=== PATIENT | male | born 1945 | race Caucasian/White ===

== ENCOUNTER 2021-02-17 08:48 | Inpatient (IN) | payer MEDICARE, OTHER ==
[~2021-02-17] VITALS: Ht 170.2 cm; Wt 83.4 kg
[2021-02-17 09:30] LABS: Basophils # (auto) 0 10 ^3/uL (0-0.2); Basophils % (auto) 0.2 % (0.0-2.0); Eosinophils # (auto) 0 10 ^3/uL (0-0.8); Hematocrit 47.1 % (41.0-53.0); Lymphocytes # (auto) 0.6 10 ^3/uL (0.4-5.4); Lymphocytes % (auto) 5.9 % (10.0-50.0); Mean Corpuscular Hemoglobin 31.2 pg (28.0-32.0); Mean Corpuscular Volume 91.7 fL (80.0-100.0); Monocytes # (auto) 0.5 10 ^3/uL (0-1.3); Monocytes % (auto) 4.9 % (0.0-12.0); Neutrophils # (auto) 9.3 10 ^3/uL (1.6-8.6); Nucleated Red Blood Cells % 0.1 %; Red Blood Cells 5.14 10^6/uL (4.5-5.90); Red Cell Distribution Width 13.1 % (11.8-14.3); White Blood Cell 10.5 10^3/uL (4.4-10.8)
[2021-02-17 09:40] LABS: Albumin 2.2 g/dL (3.4-5.0); Calcium 7.8 mg/dL (8.5-10.1); Potassium 4.1 mmol/L (3.5-5.1)
[2021-02-17 09:43] LABS: Lactic Acid w/Reflex 2.3 mmol/L (0.4-2.0)
[2021-02-17 09:44] LABS: BUN/Creatinine Ratio 22.5; Total Protein 7.6 g/dL (6.4-8.2)
[2021-02-17] MEDS ORDERED: AZITHROMYCIN 250 MG TAB PO ONE (11:15)
[2021-02-17] MEDS ORDERED: cefTRIAXone 1GM/50ML D5W 50 ML IV ONE (11:15)
[2021-02-17] MEDS ORDERED: ACETAMINOPHEN 500 MG TAB PO PRN (12:00)
[2021-02-17] MEDS ORDERED: MORPHINE SULFATE INJECTION 2 MG/ML SYRG IV PRN (12:00)
[2021-02-17] MEDS ORDERED: REMDESIVIR PER PHARMACY 0 ML IV SCH (12:00)
[2021-02-17] MEDS ORDERED: DexAMETHasone SOD PHOS 10MG/1ML VIAL INJ IV ONE (12:00)
[2021-02-17] MEDS ORDERED: NITROGLYCERIN 0.4 MG SL TAB SL PRN (12:00)
[2021-02-17 14:12] VITALS: BP 170/139
[2021-02-17] MEDS: SODIUM CHLOR 0.9% PF (SALINE LOCK) 10ML VIAL/SYR IV SCH (14:13)
[2021-02-17] MEDS ORDERED: FUROSEMIDE 40 MG/4 ML VIAL IV ONE (15:30)
[2021-02-17 18:07] VITALS: BP 126/75
[2021-02-17] MEDS ORDERED: REMDESIVIR 200 MG in NS 210ml LOADING DOSE ADULT IV ONE (20:00)
[2021-02-17 22:00] VITALS: BP 115/64
[2021-02-17] MEDS ORDERED: TOCILIZUMAB 400 MG in SODIUM CHL 0.9% 80 ML IV SCH (22:00)
[2021-02-17] MEDS: BUDESONIDE (INHALATION) 180 MCG IH IN SCH (22:00)
[2021-02-17] MEDS: ALBUTEROL SULF HFA 90MCG INH 200DOSE IN PRN (23:20)
[2021-02-18] MEDS: SODIUM CHLOR 0.9% PF (SALINE LOCK) 10ML VIAL/SYR IV SCH ×4 (00:51→20:48)
[2021-02-18] MEDS: ENOXAPARIN SOD 40 MG/0.4 ML SYRINGE SC SCH ×3 (00:55→20:49)
[2021-02-18] MEDS: DOXYCYCLINE 100MG/250ML 250 ML IV SCH ×3 (00:55→20:48)
[2021-02-18 05:00] VITALS: BP 141/82
[2021-02-18 07:35] LABS: Basophils # (auto) 0 10 ^3/uL (0-0.2); Basophils % (auto) 0.2 % (0.0-2.0); Eosinophils # (auto) 0 10 ^3/uL (0-0.8); Hemoglobin 15.6 g/dL (13.5-17.5); Lymphocytes # (auto) 0.6 10 ^3/uL (0.4-5.4); Lymphocytes % (auto) 5.7 % (10.0-50.0); Mean Corpuscular Hemoglobin 32.4 pg (28.0-32.0); Mean Corpuscular Hgb Conc. 35.3 g/dL (32.0-36.0); Mean Corpuscular Volume 91.6 fL (80.0-100.0); Monocytes # (auto) 0.6 10 ^3/uL (0-1.3); Monocytes % (auto) 6.2 % (0.0-12.0); Neutrophils # (auto) 8.7 10 ^3/uL (1.6-8.6); Neutrophils % (auto) 87.9 % (37.0-80.0); Nucleated Red Blood Cells % 0.1 %; Red Blood Cells 4.81 10^6/uL (4.5-5.90); White Blood Cell 9.9 10^3/uL (4.4-10.8)
[2021-02-18 07:46] LABS: Albumin 2.2 g/dL (3.4-5.0); Calcium 7.6 mg/dL (8.5-10.1); Potassium 3.8 mmol/L (3.5-5.1)
[2021-02-18 07:49] LABS: BUN/Creatinine Ratio 38.7; Bilirubin, Total 0.7 mg/dL (0.2-1.0); Total Protein 6.5 g/dL (6.4-8.2)
[2021-02-18] MEDS: ALBUTEROL SULF HFA 90MCG INH 200DOSE IN PRN (08:01)
[2021-02-18] MEDS: BUDESONIDE (INHALATION) 180 MCG IH IN SCH ×2 (08:01→21:20)
[2021-02-18 09:00] VITALS: BP 134/83
[2021-02-18] MEDS: ASCORBIC ACID 1,000 MG TAB PO SCH (09:18)
[2021-02-18] MEDS: CHOLECALCIFEROL (VITD3) 2,000 UNIT CAP/TAB PO SCH (09:18)
[2021-02-18] MEDS: DexAMETHasone SOD PHOS 10MG/1ML VIAL INJ IV SCH (09:18)
[2021-02-18] MEDS: FUROSEMIDE 40 MG/4 ML VIAL IV SCH (09:18)
[2021-02-18] MEDS: ZINC SULFATE 220mg CAP or TAB PO SCH (09:19)
[2021-02-18 13:00] VITALS: BP 121/79
[2021-02-18] MEDS: REMDESIVIR 100mg 100 MG in SODIUM CHL 0.9% 230 ML IV SCH (15:40)
[2021-02-18 20:32] LABS: Urine Bacteria FEW /hpf (None Seen); Urine Blood Negative /uL (Negative); Urine Hyaline Cast FEW /lpf (0 - 2); Urine Mucus FEW (None Seen); Urine WBC 3 /hpf (0 - 3)
[2021-02-18 21:17] VITALS: BP 136/86
[2021-02-19] MEDS: ALBUTEROL SULF HFA 90MCG INH 200DOSE IN PRN ×2 (01:30→09:45)
[2021-02-19 05:00] VITALS: BP 134/72
[2021-02-19] MEDS: SODIUM CHLOR 0.9% PF (SALINE LOCK) 10ML VIAL/SYR IV SCH ×3 (05:11→20:56)
[2021-02-19 09:00] VITALS: BP 136/66
[2021-02-19] MEDS: BUDESONIDE (INHALATION) 180 MCG IH IN SCH ×2 (09:45→23:23)
[2021-02-19] MEDS: DexAMETHasone SOD PHOS 10MG/1ML VIAL INJ IV SCH (10:16)
[2021-02-19] MEDS: FUROSEMIDE 40 MG/4 ML VIAL IV SCH (10:16)
[2021-02-19] MEDS: ZINC SULFATE 220mg CAP or TAB PO SCH (10:17)
[2021-02-19] MEDS: DOXYCYCLINE 100MG/250ML 250 ML IV SCH ×2 (10:17→20:56)
[2021-02-19] MEDS: POTASSIUM CHL 10 Meq TABLET PO SCH (10:17)
[2021-02-19] MEDS: ASCORBIC ACID 1,000 MG TAB PO SCH (10:24)
[2021-02-19] MEDS: CHOLECALCIFEROL (VITD3) 2,000 UNIT CAP/TAB PO SCH (10:24)
[2021-02-19] MEDS: ENOXAPARIN SOD 40 MG/0.4 ML SYRINGE SC SCH ×2 (10:25→20:56)
[2021-02-19 13:21] VITALS: BP 132/69
[2021-02-19] MEDS: REMDESIVIR 100mg 100 MG in SODIUM CHL 0.9% 230 ML IV SCH (15:22)
[2021-02-19 17:00] VITALS: BP 136/74
[2021-02-19] MEDS ORDERED: Ensure HIGH Protein Chocolate 8oz Bottle PO SCH (18:00)
[2021-02-19] MEDS: Glucerna Carbsteady SHAKE Vanilla 8oz PO SCH (18:07)
[2021-02-19] MEDS ORDERED: LORazepam 0.5 MG TAB PO ONE (22:00)
[2021-02-19 22:24] VITALS: BP 130/71
[2021-02-20] VITALS (8 sets, daily range): BP systolic 123–148; BP diastolic 53–86
[2021-02-20] MEDS: ALBUTEROL SULF HFA 90MCG INH 200DOSE IN PRN ×2 (00:18→06:00)
[2021-02-20] MEDS: SODIUM CHLOR 0.9% PF (SALINE LOCK) 10ML VIAL/SYR IV SCH ×3 (05:13→21:15)
[2021-02-20] MEDS: BUDESONIDE (INHALATION) 180 MCG IH IN SCH ×2 (06:00→22:20)
[2021-02-20 08:07] LABS: Basophils # (auto) 0 10 ^3/uL (0-0.2); Calcium 7.3 mg/dL (8.5-10.1); Eosinophils # (auto) 0 10 ^3/uL (0-0.8); Eosinophils % (auto) 0.1 % (0.0-7.0); Hemoglobin 15.1 g/dL (13.5-17.5); Lymphocytes # (auto) 0.4 10 ^3/uL (0.4-5.4); Lymphocytes % (auto) 4.2 % (10.0-50.0); Mean Corpuscular Hemoglobin 31.8 pg (28.0-32.0); Mean Corpuscular Hgb Conc. 34.3 g/dL (32.0-36.0); Mean Corpuscular Volume 92.8 fL (80.0-100.0); Monocytes # (auto) 0.2 10 ^3/uL (0-1.3); Monocytes % (auto) 2.3 % (0.0-12.0); Neutrophils % (auto) 93.4 % (37.0-80.0); Red Blood Cells 4.74 10^6/uL (4.5-5.90); Red Cell Distribution Width 13.3 % (11.8-14.3); White Blood Cell 9.7 10^3/uL (4.4-10.8)
[2021-02-20 08:12] LABS: BUN/Creatinine Ratio 38.5
[2021-02-20] MEDS: Glucerna Carbsteady SHAKE Vanilla 8oz PO SCH ×2 (08:24→18:05)
[2021-02-20] MEDS: FUROSEMIDE 40 MG/4 ML VIAL IV SCH (10:00)
[2021-02-20] MEDS: POTASSIUM CHL 10 Meq TABLET PO SCH (10:00)
[2021-02-20] MEDS: ENOXAPARIN SOD 40 MG/0.4 ML SYRINGE SC SCH ×2 (10:00→21:15)
[2021-02-20] MEDS: DexAMETHasone SOD PHOS 10MG/1ML VIAL INJ IV SCH (10:00)
[2021-02-20] MEDS: DOXYCYCLINE 100MG/250ML 250 ML IV SCH ×2 (10:00→21:15)
[2021-02-20] MEDS: ASCORBIC ACID 1,000 MG TAB PO SCH (10:00)
[2021-02-20] MEDS: ZINC SULFATE 220mg CAP or TAB PO SCH (10:00)
[2021-02-20] MEDS: CHOLECALCIFEROL (VITD3) 2,000 UNIT CAP/TAB PO SCH (10:00)
[2021-02-20] MEDS: REMDESIVIR 100mg 100 MG in SODIUM CHL 0.9% 230 ML IV SCH (15:37)
[2021-02-21] VITALS (11 sets, daily range): BP systolic 126–159; BP diastolic 74–87
[2021-02-21] MEDS: SODIUM CHLOR 0.9% PF (SALINE LOCK) 10ML VIAL/SYR IV SCH ×3 (06:12→21:27)
[2021-02-21] MEDS: BUDESONIDE (INHALATION) 180 MCG IH IN SCH ×2 (06:16→19:20)
[2021-02-21] MEDS: ALBUTEROL SULF HFA 90MCG INH 200DOSE IN PRN ×2 (06:16→20:13)
[2021-02-21 06:23] LABS: Potassium 3.9 mmol/L (3.5-5.1)
[2021-02-21] MEDS: guaiFENesin-DM 100/10mg/5ml SYR PO PRN (06:27)
[2021-02-21 06:31] LABS: Albumin 2.2 g/dL (3.4-5.0); BUN/Creatinine Ratio 37.5; Calcium 7.5 mg/dL (8.5-10.1); Total Protein 6.3 g/dL (6.4-8.2)
[2021-02-21] MEDS: Glucerna Carbsteady SHAKE Vanilla 8oz PO SCH ×2 (08:00→18:00)
[2021-02-21] MEDS: DexAMETHasone SOD PHOS 10MG/1ML VIAL INJ IV SCH (10:00)
[2021-02-21] MEDS: FUROSEMIDE 40 MG/4 ML VIAL IV SCH (10:00)
[2021-02-21] MEDS: DOXYCYCLINE 100MG/250ML 250 ML IV SCH ×2 (10:00→21:27)
[2021-02-21] MEDS ORDERED: HALOPERIDOL LACTATE 5 MG/ML INJ VIAL IM ONE (15:30)
[2021-02-21] MEDS: ASCORBIC ACID 1,000 MG TAB PO SCH (15:34)
[2021-02-21] MEDS: POTASSIUM CHL 10 Meq TABLET PO SCH (15:34)
[2021-02-21] MEDS: ZINC SULFATE 220mg CAP or TAB PO SCH (15:34)
[2021-02-21] MEDS: ENOXAPARIN SOD 40 MG/0.4 ML SYRINGE SC SCH ×2 (15:35→21:28)
[2021-02-21] MEDS: CHOLECALCIFEROL (VITD3) 2,000 UNIT CAP/TAB PO SCH (15:35)
[2021-02-21] MEDS: REMDESIVIR 100mg 100 MG in SODIUM CHL 0.9% 230 ML IV SCH (15:50)
[2021-02-22] VITALS (14 sets, daily range): BP systolic 136–150; BP diastolic 70–89
[2021-02-22] MEDS: TEMAZEPAM 15 MG CAP PO PRN ×2 (00:33→23:28)
[2021-02-22] MEDS: ALBUTEROL SULF HFA 90MCG INH 200DOSE IN PRN ×2 (06:03→18:22)
[2021-02-22] MEDS: BUDESONIDE (INHALATION) 180 MCG IH IN SCH ×2 (06:03→18:22)
[2021-02-22] MEDS: SODIUM CHLOR 0.9% PF (SALINE LOCK) 10ML VIAL/SYR IV SCH ×3 (06:07→22:26)
[2021-02-22] MEDS: Glucerna Carbsteady SHAKE Vanilla 8oz PO SCH ×2 (09:22→17:41)
[2021-02-22] MEDS: DexAMETHasone SOD PHOS 10MG/1ML VIAL INJ IV SCH (09:56)
[2021-02-22] MEDS: POTASSIUM CHL 10 Meq TABLET PO SCH (09:57)
[2021-02-22] MEDS: DOXYCYCLINE 100MG/250ML 250 ML IV SCH (09:57)
[2021-02-22] MEDS: ZINC SULFATE 220mg CAP or TAB PO SCH (09:57)
[2021-02-22] MEDS: FUROSEMIDE 40 MG/4 ML VIAL IV SCH (09:57)
[2021-02-22] MEDS: CHOLECALCIFEROL (VITD3) 2,000 UNIT CAP/TAB PO SCH (09:58)
[2021-02-22] MEDS: ASCORBIC ACID 1,000 MG TAB PO SCH (09:58)
[2021-02-22] MEDS: ENOXAPARIN SOD 40 MG/0.4 ML SYRINGE SC SCH ×2 (09:58→22:26)
[2021-02-22] MEDS ORDERED: HALOPERIDOL LACTATE 5 MG/ML INJ VIAL IM PRN (13:00)
[2021-02-23] VITALS (13 sets, daily range): BP systolic 130–159; BP diastolic 79–95
[2021-02-23] MEDS: ALBUTEROL SULF HFA 90MCG INH 200DOSE IN PRN ×2 (05:48→23:29)
[2021-02-23] MEDS: BUDESONIDE (INHALATION) 180 MCG IH IN SCH ×2 (05:48→22:00)
[2021-02-23] MEDS: SODIUM CHLOR 0.9% PF (SALINE LOCK) 10ML VIAL/SYR IV SCH ×3 (06:08→21:41)
[2021-02-23] MEDS: Glucerna Carbsteady SHAKE Vanilla 8oz PO SCH ×2 (08:00→19:30)
[2021-02-23 09:24] LABS: Calcium 7.9 mg/dL (8.5-10.1); Potassium 4.3 mmol/L (3.5-5.1)
[2021-02-23 09:33] LABS: BUN/Creatinine Ratio 48.6; Bilirubin, Total 0.8 mg/dL (0.2-1.0); CRP High Sensitivity 11.7 mg/dL (< 0.3); Total Protein 6.9 g/dL (6.4-8.2)
[2021-02-23] MEDS: POTASSIUM CHL 10 Meq TABLET PO SCH ×2 (10:00→12:07)
[2021-02-23] MEDS: guaiFENesin-DM 100/10mg/5ml SYR PO PRN (10:44)
[2021-02-23] MEDS: DexAMETHasone SOD PHOS 10MG/1ML VIAL INJ IV SCH (10:45)
[2021-02-23] MEDS: ASCORBIC ACID 1,000 MG TAB PO SCH (10:46)
[2021-02-23] MEDS: CHOLECALCIFEROL (VITD3) 2,000 UNIT CAP/TAB PO SCH (10:48)
[2021-02-23] MEDS: ENOXAPARIN SOD 40 MG/0.4 ML SYRINGE SC SCH ×2 (10:49→21:41)
[2021-02-23] MEDS: FUROSEMIDE 40 MG/4 ML VIAL IV SCH (10:51)
[2021-02-23] MEDS: ZINC SULFATE 220mg CAP or TAB PO SCH (11:03)
[2021-02-23] MEDS: TEMAZEPAM 15 MG CAP PO PRN (21:41)
[2021-02-24] VITALS (11 sets, daily range): BP systolic 119–160; BP diastolic 71–97
[2021-02-24] MEDS: SODIUM CHLOR 0.9% PF (SALINE LOCK) 10ML VIAL/SYR IV SCH ×3 (06:10→21:43)
[2021-02-24] MEDS: guaiFENesin-DM 100/10mg/5ml SYR PO PRN ×2 (06:11→23:34)
[2021-02-24 06:45] LABS: Basophils # (auto) 0 10 ^3/uL (0-0.2); Basophils % (auto) 0.1 % (0.0-2.0); Eosinophils # (auto) 0 10 ^3/uL (0-0.8); Hematocrit 45.7 % (41.0-53.0); Hemoglobin 15.6 g/dL (13.5-17.5); Lymphocytes # (auto) 0.5 10 ^3/uL (0.4-5.4); Mean Corpuscular Hemoglobin 31.8 pg (28.0-32.0); Mean Corpuscular Hgb Conc. 34.1 g/dL (32.0-36.0); Mean Corpuscular Volume 93.3 fL (80.0-100.0); Monocytes # (auto) 0.4 10 ^3/uL (0-1.3); Monocytes % (auto) 2.8 % (0.0-12.0); Neutrophils # (auto) 12.5 10 ^3/uL (1.6-8.6); Neutrophils % (auto) 93.1 % (37.0-80.0); Red Cell Distribution Width 13.3 % (11.8-14.3); White Blood Cell 13.4 10^3/uL (4.4-10.8)
[2021-02-24 07:52] LABS: Potassium 5.1 mmol/L (3.5-5.1)
[2021-02-24 08:14] LABS: BUN/Creatinine Ratio 58.1; CRP High Sensitivity 10.2 mg/dL (< 0.3); Calcium 8.2 mg/dL (8.5-10.1)
[2021-02-24] MEDS: BUDESONIDE (INHALATION) 180 MCG IH IN SCH ×2 (08:43→19:15)
[2021-02-24] MEDS: ALBUTEROL SULF HFA 90MCG INH 200DOSE IN PRN ×2 (08:43→19:14)
[2021-02-24] MEDS: Glucerna Carbsteady SHAKE Vanilla 8oz PO SCH ×2 (09:23→18:40)
[2021-02-24] MEDS ORDERED: hydrALAZINE HCL 20 MG/ML VL IV PRN (09:30)
[2021-02-24] MEDS: ZINC SULFATE 220mg CAP or TAB PO SCH (10:01)
[2021-02-24] MEDS: POTASSIUM CHL 10 Meq TABLET PO SCH (10:01)
[2021-02-24] MEDS: DexAMETHasone SOD PHOS 10MG/1ML VIAL INJ IV SCH (10:01)
[2021-02-24] MEDS: ENOXAPARIN SOD 100 MG/1 ML SYRINGE SC SCH ×2 (10:02→21:42)
[2021-02-24] MEDS: CHOLECALCIFEROL (VITD3) 2,000 UNIT CAP/TAB PO SCH (10:02)
[2021-02-24] MEDS: ASCORBIC ACID 1,000 MG TAB PO SCH (10:02)
[2021-02-24] MEDS: FUROSEMIDE 20 MG TAB PO SCH (10:02)
[2021-02-24] MEDS: TEMAZEPAM 15 MG CAP PO PRN (23:34)
[2021-02-25] VITALS (10 sets, daily range): BP systolic 119–152; BP diastolic 75–91
[2021-02-25] MEDS: SODIUM CHLOR 0.9% PF (SALINE LOCK) 10ML VIAL/SYR IV SCH ×3 (06:00→20:53)
[2021-02-25] MEDS: Glucerna Carbsteady SHAKE Vanilla 8oz PO SCH ×2 (08:00→18:00)
[2021-02-25] MEDS: POTASSIUM CHL 10 Meq TABLET PO SCH (10:45)
[2021-02-25] MEDS: ZINC SULFATE 220mg CAP or TAB PO SCH (10:45)
[2021-02-25] MEDS: DexAMETHasone SOD PHOS 10MG/1ML VIAL INJ IV SCH (10:45)
[2021-02-25] MEDS: FUROSEMIDE 20 MG TAB PO SCH (10:46)
[2021-02-25] MEDS: ASCORBIC ACID 1,000 MG TAB PO SCH (10:46)
[2021-02-25] MEDS: CHOLECALCIFEROL (VITD3) 2,000 UNIT CAP/TAB PO SCH (10:47)
[2021-02-25] MEDS: ENOXAPARIN SOD 100 MG/1 ML SYRINGE SC SCH ×2 (10:47→20:53)
[2021-02-25] MEDS ORDERED: ACETAMINOPHEN 325 MG TAB PO PRN (12:15)
[2021-02-25] MEDS: ALBUTEROL SULF HFA 90MCG INH 200DOSE IN PRN ×2 (15:27→21:06)
[2021-02-25] MEDS: BUDESONIDE (INHALATION) 180 MCG IH IN SCH ×2 (15:27→19:40)
[2021-02-25] MEDS: guaiFENesin-DM 100/10mg/5ml SYR PO PRN (20:53)
[2021-02-25] MEDS: TEMAZEPAM 15 MG CAP PO PRN (20:53)
[2021-02-26] VITALS (8 sets, daily range): BP systolic 120–154; BP diastolic 80–95
[2021-02-26] MEDS: SODIUM CHLOR 0.9% PF (SALINE LOCK) 10ML VIAL/SYR IV SCH ×3 (06:40→21:30)
[2021-02-26] MEDS: BUDESONIDE (INHALATION) 180 MCG IH IN SCH ×2 (07:39→18:40)
[2021-02-26] MEDS: ALBUTEROL SULF HFA 90MCG INH 200DOSE IN PRN ×2 (07:39→19:12)
[2021-02-26] MEDS: Glucerna Carbsteady SHAKE Vanilla 8oz PO SCH ×2 (08:07→18:00)
[2021-02-26] MEDS: POTASSIUM CHL 10 Meq TABLET PO SCH (10:12)
[2021-02-26] MEDS: DexAMETHasone SOD PHOS 10MG/1ML VIAL INJ IV SCH (10:12)
[2021-02-26] MEDS: ZINC SULFATE 220mg CAP or TAB PO SCH (10:12)
[2021-02-26] MEDS: CHOLECALCIFEROL (VITD3) 2,000 UNIT CAP/TAB PO SCH (10:14)
[2021-02-26] MEDS: ENOXAPARIN SOD 100 MG/1 ML SYRINGE SC SCH (10:14)
[2021-02-26] MEDS: ASCORBIC ACID 1,000 MG TAB PO SCH (10:14)
[2021-02-26] MEDS: FUROSEMIDE 20 MG TAB PO SCH ×2 (10:22→10:25)
[2021-02-26] MEDS ORDERED: FUROSEMIDE 40 MG/4 ML VIAL IV ONE (16:30)
[2021-02-26] MEDS: APIXABAN 5 MG TAB PO SCH (21:30)
[2021-02-26] MEDS: TEMAZEPAM 15 MG CAP PO PRN (21:31)
[2021-02-26] MEDS: guaiFENesin-DM 100/10mg/5ml SYR PO PRN (21:31)
[2021-02-27 05:00] VITALS: BP 149/97
[2021-02-27 06:27] VITALS: BP 149/97
[2021-02-27] MEDS: SODIUM CHLOR 0.9% PF (SALINE LOCK) 10ML VIAL/SYR IV SCH ×3 (06:30→21:32)
[2021-02-27 09:13] VITALS: BP 135/91
[2021-02-27] MEDS: Glucerna Carbsteady SHAKE Vanilla 8oz PO SCH ×2 (10:08→17:50)
[2021-02-27] MEDS: DexAMETHasone SOD PHOS 10MG/1ML VIAL INJ IV SCH (10:08)
[2021-02-27] MEDS: ASCORBIC ACID 1,000 MG TAB PO SCH (10:09)
[2021-02-27] MEDS: ZINC SULFATE 220mg CAP or TAB PO SCH (10:09)
[2021-02-27] MEDS: APIXABAN 5 MG TAB PO SCH ×2 (10:09→21:33)
[2021-02-27] MEDS: CHOLECALCIFEROL (VITD3) 2,000 UNIT CAP/TAB PO SCH (10:09)
[2021-02-27] MEDS: POTASSIUM CHL 10 Meq TABLET PO SCH (10:10)
[2021-02-27 10:39] LABS: Hematocrit 47.2 % (41.0-53.0); Hemoglobin 15.6 g/dL (13.5-17.5); Mean Corpuscular Hemoglobin 30.8 pg (28.0-32.0); Mean Corpuscular Hgb Conc. 32.9 g/dL (32.0-36.0); Mean Corpuscular Volume 93.5 fL (80.0-100.0); Red Blood Cells 5.05 10^6/uL (4.5-5.90); Red Cell Distribution Width 13.3 % (11.8-14.3); White Blood Cell 19.6 10^3/uL (4.4-10.8)
[2021-02-27 10:47] LABS: Basophils % (manual) 0 (0.0-2.0); Blast Cells 0; Metamyelocytes % 0; Myelocytes % 0; Promyelocytes % 0; Reactive Lymphocytes 0
[2021-02-27 11:03] LABS: Band Neutrophils % (manual) 8; Eosinophils % (manual) 3 (0-7); Lymphocytes % (manual) 3 (10.0-50.0); Monocytes % (manual) 1 (0-12)
[2021-02-27] MEDS: BUDESONIDE (INHALATION) 180 MCG IH IN SCH ×2 (11:04→19:00)
[2021-02-27] MEDS: ALBUTEROL SULF HFA 90MCG INH 200DOSE IN PRN ×2 (11:04→20:22)
[2021-02-27 11:16] LABS: Potassium 4.7 mmol/L (3.5-5.1)
[2021-02-27 11:30] LABS: Albumin 1.9 g/dL (3.4-5.0); BUN/Creatinine Ratio 59.1; Bilirubin, Total 0.7 mg/dL (0.2-1.0); Calcium 8.3 mg/dL (8.5-10.1); Total Protein 6.9 g/dL (6.4-8.2)
[2021-02-27] MEDS ORDERED: FUROSEMIDE 40 MG/4 ML VIAL IV ONE (13:00)
[2021-02-27 14:16] VITALS: BP 137/83
[2021-02-27 17:36] VITALS: BP 140/79
[2021-02-27] MEDS: guaiFENesin-DM 100/10mg/5ml SYR PO PRN (21:34)
[2021-02-27] MEDS: TEMAZEPAM 15 MG CAP PO PRN (21:34)
[2021-02-27 22:00] VITALS: BP 119/81
[2021-02-28 05:00] VITALS: BP 155/85
[2021-02-28] MEDS: SODIUM CHLOR 0.9% PF (SALINE LOCK) 10ML VIAL/SYR IV SCH ×3 (06:32→22:21)
[2021-02-28 06:35] VITALS: BP 149/97
[2021-02-28 08:00] VITALS: BP 128/80
[2021-02-28] MEDS: Glucerna Carbsteady SHAKE Vanilla 8oz PO SCH ×2 (08:00→18:19)
[2021-02-28] MEDS: ZINC SULFATE 220mg CAP or TAB PO SCH (09:45)
[2021-02-28] MEDS: FUROSEMIDE 40 MG/4 ML VIAL IV SCH (09:45)
[2021-02-28] MEDS: POTASSIUM CHL 10 Meq TABLET PO SCH (09:46)
[2021-02-28] MEDS: CHOLECALCIFEROL (VITD3) 2,000 UNIT CAP/TAB PO SCH (09:46)
[2021-02-28] MEDS: ASCORBIC ACID 1,000 MG TAB PO SCH (09:46)
[2021-02-28] MEDS: APIXABAN 5 MG TAB PO SCH ×2 (09:46→22:20)
[2021-02-28] MEDS: BUDESONIDE (INHALATION) 180 MCG IH IN SCH (10:00)
[2021-02-28] MEDS: ALBUTEROL SULF HFA 90MCG INH 200DOSE IN PRN (11:57)
[2021-02-28 12:26] LABS: Basophils # (auto) 0 10 ^3/uL (0-0.2); Eosinophils # (auto) 0.1 10 ^3/uL (0-0.8); Eosinophils % (auto) 0.6 % (0.0-7.0); Hematocrit 51.2 % (41.0-53.0); Hemoglobin 16.8 g/dL (13.5-17.5); Lymphocytes # (auto) 0.8 10 ^3/uL (0.4-5.4); Lymphocytes % (auto) 3.9 % (10.0-50.0); Mean Corpuscular Hemoglobin 30.6 pg (28.0-32.0); Mean Corpuscular Hgb Conc. 32.7 g/dL (32.0-36.0); Mean Corpuscular Volume 93.6 fL (80.0-100.0); Monocytes # (auto) 0.6 10 ^3/uL (0-1.3); Monocytes % (auto) 2.7 % (0.0-12.0); Neutrophils # (auto) 19.3 10 ^3/uL (1.6-8.6); Neutrophils % (auto) 92.8 % (37.0-80.0); Nucleated Red Blood Cells % 0.1 %; Red Blood Cells 5.47 10^6/uL (4.5-5.90); Red Cell Distribution Width 13.1 % (11.8-14.3); White Blood Cell 20.8 10^3/uL (4.4-10.8)
[2021-02-28 12:42] LABS: Albumin 2.1 g/dL (3.4-5.0); Calcium 8.5 mg/dL (8.5-10.1); Potassium 4.7 mmol/L (3.5-5.1)
[2021-02-28 12:45] LABS: BUN/Creatinine Ratio 49.4; Total Protein 7.6 g/dL (6.4-8.2)
[2021-02-28 13:37] VITALS: BP 130/83
[2021-02-28] MEDS ORDERED: cefTRIAXone 1GM/50ML D5W 50 ML IV ONE (15:45)
[2021-02-28 17:03] VITALS: BP 104/66
[2021-02-28 22:00] VITALS: BP 124/69
[2021-03-01 05:00] VITALS: BP 130/84
[2021-03-01] MEDS: SODIUM CHLOR 0.9% PF (SALINE LOCK) 10ML VIAL/SYR IV SCH ×3 (06:22→23:04)
[2021-03-01] MEDS: BUDESONIDE (INHALATION) 180 MCG IH IN SCH ×2 (06:27→22:00)
[2021-03-01] MEDS: ALBUTEROL SULF HFA 90MCG INH 200DOSE IN PRN (06:27)
[2021-03-01] MEDS: Glucerna Carbsteady SHAKE Vanilla 8oz PO SCH ×2 (08:00→18:14)
[2021-03-01 09:44] VITALS: BP 151/85
[2021-03-01] MEDS: APIXABAN 5 MG TAB PO SCH ×2 (11:42→23:04)
[2021-03-01] MEDS: cefTRIAXone 1GM/50ML D5W 50 ML IV SCH (11:42)
[2021-03-01] MEDS: POTASSIUM CHL 10 Meq TABLET PO SCH (11:43)
[2021-03-01] MEDS: CHOLECALCIFEROL (VITD3) 2,000 UNIT CAP/TAB PO SCH (11:43)
[2021-03-01] MEDS: FUROSEMIDE 40 MG/4 ML VIAL IV SCH (11:44)
[2021-03-01 12:49] VITALS: BP 117/82
[2021-03-01 16:54] VITALS: BP 121/87
[2021-03-01 22:00] VITALS: BP 127/72
[2021-03-01] MEDS: TEMAZEPAM 15 MG CAP PO PRN (23:05)
[2021-03-01] MEDS: guaiFENesin-DM 100/10mg/5ml SYR PO PRN (23:05)
[2021-03-02] VITALS (8 sets, daily range): BP systolic 112–129; BP diastolic 71–87
[2021-03-02] MEDS: SODIUM CHLOR 0.9% PF (SALINE LOCK) 10ML VIAL/SYR IV SCH ×3 (05:28→21:48)
[2021-03-02] MEDS: ALBUTEROL SULF HFA 90MCG INH 200DOSE IN PRN ×2 (06:26→18:50)
[2021-03-02] MEDS: BUDESONIDE (INHALATION) 180 MCG IH IN SCH ×2 (06:28→18:50)
[2021-03-02] MEDS: Glucerna Carbsteady SHAKE Vanilla 8oz PO SCH ×2 (08:00→18:00)
[2021-03-02 10:22] LABS: Basophils # (auto) 0 10 ^3/uL (0-0.2); Basophils % (auto) 0.1 % (0.0-2.0); Eosinophils # (auto) 0.1 10 ^3/uL (0-0.8); Eosinophils % (auto) 0.8 % (0.0-7.0); Hematocrit 45.4 % (41.0-53.0); Hemoglobin 14.9 g/dL (13.5-17.5); Lymphocytes % (auto) 5.5 % (10.0-50.0); Mean Corpuscular Hemoglobin 30.9 pg (28.0-32.0); Mean Corpuscular Hgb Conc. 32.9 g/dL (32.0-36.0); Mean Corpuscular Volume 93.8 fL (80.0-100.0); Monocytes % (auto) 5.8 % (0.0-12.0); Neutrophils # (auto) 15.9 10 ^3/uL (1.6-8.6); Neutrophils % (auto) 87.8 % (37.0-80.0); Nucleated Red Blood Cells % 0.1 %; Red Blood Cells 4.84 10^6/uL (4.5-5.90); Red Cell Distribution Width 13.5 % (11.8-14.3); White Blood Cell 18.1 10^3/uL (4.4-10.8)
[2021-03-02] MEDS: cefTRIAXone 1GM/50ML D5W 50 ML IV SCH (10:25)
[2021-03-02] MEDS: FUROSEMIDE 40 MG/4 ML VIAL IV SCH (10:26)
[2021-03-02] MEDS: APIXABAN 5 MG TAB PO SCH ×2 (10:26→21:48)
[2021-03-02] MEDS: POTASSIUM CHL 10 Meq TABLET PO SCH (10:27)
[2021-03-02] MEDS: CHOLECALCIFEROL (VITD3) 2,000 UNIT CAP/TAB PO SCH (10:27)
[2021-03-02] MEDS: TEMAZEPAM 15 MG CAP PO PRN (21:49)
[2021-03-02] MEDS: guaiFENesin-DM 100/10mg/5ml SYR PO PRN (21:49)
[2021-03-03 00:10] VITALS: BP 125/80
[2021-03-03 05:00] VITALS: BP 123/77
[2021-03-03] MEDS: BUDESONIDE (INHALATION) 180 MCG IH IN SCH ×2 (05:31→18:10)
[2021-03-03] MEDS: ALBUTEROL SULF HFA 90MCG INH 200DOSE IN PRN ×2 (05:31→19:05)
[2021-03-03] MEDS: SODIUM CHLOR 0.9% PF (SALINE LOCK) 10ML VIAL/SYR IV SCH ×3 (05:36→22:28)
[2021-03-03] MEDS: Glucerna Carbsteady SHAKE Vanilla 8oz PO SCH ×2 (08:00→18:00)
[2021-03-03 08:18] LABS: Basophils # (auto) 0 10 ^3/uL (0-0.2); Basophils % (auto) 0.1 % (0.0-2.0); Eosinophils # (auto) 0.3 10 ^3/uL (0-0.8); Eosinophils % (auto) 1.9 % (0.0-7.0); Hematocrit 45.8 % (41.0-53.0); Hemoglobin 15.1 g/dL (13.5-17.5); Lymphocytes # (auto) 1.1 10 ^3/uL (0.4-5.4); Lymphocytes % (auto) 6.3 % (10.0-50.0); Mean Corpuscular Hemoglobin 31.4 pg (28.0-32.0); Monocytes # (auto) 0.8 10 ^3/uL (0-1.3); Neutrophils # (auto) 14.8 10 ^3/uL (1.6-8.6); Neutrophils % (auto) 86.7 % (37.0-80.0); Red Blood Cells 4.82 10^6/uL (4.5-5.90); Red Cell Distribution Width 13.2 % (11.8-14.3)
[2021-03-03] MEDS: cefTRIAXone 1GM/50ML D5W 50 ML IV SCH (08:21)
[2021-03-03 08:35] LABS: Potassium 4.9 mmol/L (3.5-5.1)
[2021-03-03 08:44] LABS: BUN/Creatinine Ratio 67.3; Calcium 8.9 mg/dL (8.5-10.1)
[2021-03-03 09:06] VITALS: BP 120/79
[2021-03-03] MEDS: POTASSIUM CHL 10 Meq TABLET PO SCH (10:00)
[2021-03-03] MEDS: CHOLECALCIFEROL (VITD3) 2,000 UNIT CAP/TAB PO SCH (10:00)
[2021-03-03] MEDS: APIXABAN 5 MG TAB PO SCH ×2 (10:00→22:28)
[2021-03-03] MEDS: FUROSEMIDE 40 MG/4 ML VIAL IV SCH (10:00)
[2021-03-03 12:57] VITALS: BP 121/77
[2021-03-03 17:00] VITALS: BP 121/80
[2021-03-03] MEDS: guaiFENesin-DM 100/10mg/5ml SYR PO PRN (21:48)
[2021-03-03] MEDS: TEMAZEPAM 15 MG CAP PO PRN (21:52)
[2021-03-03 22:00] VITALS: BP 125/64
[2021-03-04 05:00] VITALS: BP 123/72
[2021-03-04] MEDS: SODIUM CHLOR 0.9% PF (SALINE LOCK) 10ML VIAL/SYR IV SCH ×3 (05:49→21:59)
[2021-03-04] MEDS: ALBUTEROL SULF HFA 90MCG INH 200DOSE IN PRN ×2 (05:53→19:54)
[2021-03-04] MEDS: BUDESONIDE (INHALATION) 180 MCG IH IN SCH ×2 (05:53→19:54)
[2021-03-04 09:00] VITALS: BP 125/77
[2021-03-04] MEDS: Glucerna Carbsteady SHAKE Vanilla 8oz PO SCH ×2 (09:10→17:53)
[2021-03-04] MEDS: FUROSEMIDE 40 MG/4 ML VIAL IV SCH (09:16)
[2021-03-04] MEDS: cefTRIAXone 1GM/50ML D5W 50 ML IV SCH (09:16)
[2021-03-04] MEDS: POTASSIUM CHL 10 Meq TABLET PO SCH (09:17)
[2021-03-04] MEDS: APIXABAN 5 MG TAB PO SCH ×2 (09:17→21:58)
[2021-03-04] MEDS: CHOLECALCIFEROL (VITD3) 2,000 UNIT CAP/TAB PO SCH (09:17)
[2021-03-04 12:45] VITALS: BP 115/70
[2021-03-04 17:16] VITALS: BP 122/77
[2021-03-04] MEDS: guaiFENesin-DM 100/10mg/5ml SYR PO PRN (21:58)
[2021-03-04] MEDS: TEMAZEPAM 15 MG CAP PO PRN (21:58)
[2021-03-04 22:00] VITALS: BP 135/73
[2021-03-05] MEDS: guaiFENesin-DM 100/10mg/5ml SYR PO PRN ×2 (04:37→22:20)
[2021-03-05 05:00] VITALS: BP 128/84
[2021-03-05] MEDS: SODIUM CHLOR 0.9% PF (SALINE LOCK) 10ML VIAL/SYR IV SCH ×3 (05:58→22:17)
[2021-03-05] MEDS: ALBUTEROL SULF HFA 90MCG INH 200DOSE IN PRN (06:36)
[2021-03-05] MEDS: BUDESONIDE (INHALATION) 180 MCG IH IN SCH ×2 (06:36→22:00)
[2021-03-05] MEDS: Glucerna Carbsteady SHAKE Vanilla 8oz PO SCH ×2 (08:00→16:27)
[2021-03-05] MEDS: APIXABAN 5 MG TAB PO SCH ×2 (08:53→22:18)
[2021-03-05] MEDS: cefTRIAXone 1GM/50ML D5W 50 ML IV SCH (08:53)
[2021-03-05] MEDS: CHOLECALCIFEROL (VITD3) 2,000 UNIT CAP/TAB PO SCH (08:54)
[2021-03-05] MEDS: FUROSEMIDE 40 MG/4 ML VIAL IV SCH (08:54)
[2021-03-05] MEDS: POTASSIUM CHL 10 Meq TABLET PO SCH (08:54)
[2021-03-05 09:00] VITALS: BP 89/61
[2021-03-05 10:53] LABS: Basophils # (auto) 0 10 ^3/uL (0-0.2); Basophils % (auto) 0.2 % (0.0-2.0); Eosinophils # (auto) 0.4 10 ^3/uL (0-0.8); Eosinophils % (auto) 2.2 % (0.0-7.0); Hemoglobin 13.8 g/dL (13.5-17.5); Lymphocytes # (auto) 0.6 10 ^3/uL (0.4-5.4); Lymphocytes % (auto) 3.8 % (10.0-50.0); Mean Corpuscular Hemoglobin 31.5 pg (28.0-32.0); Mean Corpuscular Hgb Conc. 33.7 g/dL (32.0-36.0); Mean Corpuscular Volume 93.6 fL (80.0-100.0); Monocytes # (auto) 0.6 10 ^3/uL (0-1.3); Neutrophils # (auto) 14.5 10 ^3/uL (1.6-8.6); Neutrophils % (auto) 89.8 % (37.0-80.0); Red Blood Cells 4.38 10^6/uL (4.5-5.90); Red Cell Distribution Width 13.4 % (11.8-14.3); White Blood Cell 16.2 10^3/uL (4.4-10.8)
[2021-03-05 11:16] LABS: Calcium 8.6 mg/dL (8.5-10.1); Potassium 4.1 mmol/L (3.5-5.1)
[2021-03-05 11:18] LABS: BUN/Creatinine Ratio 43.1
[2021-03-05] MEDS ORDERED: LACTULOSE 20Gm/30ML SOLN PO ONE (12:00)
[2021-03-05 13:00] VITALS: BP 121/74
[2021-03-05] MEDS: LORazepam 2MG/ML-1ML VIAL IV PRN (15:17)
[2021-03-05 17:00] VITALS: BP 118/77
[2021-03-05 22:00] VITALS: BP 129/84
[2021-03-05] MEDS: MIRTAZAPINE 30 MG TAB PO SCH (22:18)
[2021-03-05] MEDS: TEMAZEPAM 15 MG CAP PO PRN (22:20)
[2021-03-06 05:00] VITALS: BP 146/75
[2021-03-06] MEDS: SODIUM CHLOR 0.9% PF (SALINE LOCK) 10ML VIAL/SYR IV SCH ×3 (05:49→22:13)
[2021-03-06] MEDS: BUDESONIDE (INHALATION) 180 MCG IH IN SCH ×2 (06:52→22:00)
[2021-03-06] MEDS: ALBUTEROL SULF HFA 90MCG INH 200DOSE IN PRN ×2 (06:52→23:23)
[2021-03-06] MEDS: Glucerna Carbsteady SHAKE Vanilla 8oz PO SCH ×2 (08:00→15:55)
[2021-03-06 09:00] VITALS: BP 115/71
[2021-03-06] MEDS: cefTRIAXone 1GM/50ML D5W 50 ML IV SCH (09:10)
[2021-03-06] MEDS: APIXABAN 5 MG TAB PO SCH ×2 (09:10→22:15)
[2021-03-06] MEDS: CHOLECALCIFEROL (VITD3) 2,000 UNIT CAP/TAB PO SCH (09:10)
[2021-03-06] MEDS: POTASSIUM CHL 10 Meq TABLET PO SCH (09:10)
[2021-03-06] MEDS: FUROSEMIDE 40 MG/4 ML VIAL IV SCH (09:11)
[2021-03-06] MEDS: guaiFENesin-DM 100/10mg/5ml SYR PO PRN ×2 (12:43→22:15)
[2021-03-06 13:00] VITALS: BP 118/87
[2021-03-06] MEDS: LORazepam 2MG/ML-1ML VIAL IV PRN (16:26)
[2021-03-06 17:00] VITALS: BP 138/83
[2021-03-06 22:00] VITALS: BP 113/72
[2021-03-06] MEDS: MIRTAZAPINE 30 MG TAB PO SCH (22:14)
[2021-03-06] MEDS: TEMAZEPAM 15 MG CAP PO PRN (22:16)
[2021-03-07] MEDS: LORazepam 2MG/ML-1ML VIAL IV PRN (01:15)
[2021-03-07 05:00] VITALS: BP 136/85
[2021-03-07] MEDS: SODIUM CHLOR 0.9% PF (SALINE LOCK) 10ML VIAL/SYR IV SCH ×3 (05:03→21:25)
[2021-03-07 05:31] LABS: Basophils # (auto) 0.1 10 ^3/uL (0-0.2); Basophils % (auto) 0.4 % (0.0-2.0); Eosinophils # (auto) 0.5 10 ^3/uL (0-0.8); Eosinophils % (auto) 4.2 % (0.0-7.0); Hematocrit 42.4 % (41.0-53.0); Hemoglobin 13.7 g/dL (13.5-17.5); Lymphocytes # (auto) 0.6 10 ^3/uL (0.4-5.4); Lymphocytes % (auto) 4.6 % (10.0-50.0); Mean Corpuscular Hemoglobin 30.6 pg (28.0-32.0); Mean Corpuscular Hgb Conc. 32.4 g/dL (32.0-36.0); Mean Corpuscular Volume 94.4 fL (80.0-100.0); Monocytes # (auto) 0.5 10 ^3/uL (0-1.3); Neutrophils # (auto) 10.7 10 ^3/uL (1.6-8.6); Neutrophils % (auto) 86.8 % (37.0-80.0); Red Blood Cells 4.49 10^6/uL (4.5-5.90); Red Cell Distribution Width 13.2 % (11.8-14.3); White Blood Cell 12.3 10^3/uL (4.4-10.8)
[2021-03-07 05:50] LABS: Calcium 8.7 mg/dL (8.5-10.1); Magnesium 3.4 mg/dL (1.6-2.6); Potassium 4.3 mmol/L (3.5-5.1)
[2021-03-07 05:55] LABS: Phosphorus 4.1 mg/dL (2.5-4.90)
[2021-03-07 06:09] LABS: BUN/Creatinine Ratio 53.6
[2021-03-07 09:00] VITALS: BP 124/77
[2021-03-07] MEDS: CHOLECALCIFEROL (VITD3) 2,000 UNIT CAP/TAB PO SCH (09:17)
[2021-03-07] MEDS: cefTRIAXone 1GM/50ML D5W 50 ML IV SCH (09:17)
[2021-03-07] MEDS: FUROSEMIDE 40 MG/4 ML VIAL IV SCH (09:17)
[2021-03-07] MEDS: POTASSIUM CHL 10 Meq TABLET PO SCH (09:18)
[2021-03-07] MEDS: APIXABAN 5 MG TAB PO SCH ×2 (09:18→21:25)
[2021-03-07] MEDS: Glucerna Carbsteady SHAKE Vanilla 8oz PO SCH ×2 (09:25→17:50)
[2021-03-07] MEDS: BUDESONIDE (INHALATION) 180 MCG IH IN SCH ×2 (10:00→21:29)
[2021-03-07 13:00] VITALS: BP 133/73
[2021-03-07 17:00] VITALS: BP_SYST 114; BP_SYST 120; BP_DIAS 73; BP_DIAS 77
[2021-03-07] MEDS: MIRTAZAPINE 30 MG TAB PO SCH (21:25)
[2021-03-07] MEDS: ALBUTEROL SULF HFA 90MCG INH 200DOSE IN PRN (21:30)
[2021-03-07 22:39] VITALS: BP 123/71
[2021-03-07] MEDS: guaiFENesin-DM 100/10mg/5ml SYR PO PRN (23:28)
[2021-03-07] MEDS: TEMAZEPAM 15 MG CAP PO PRN (23:28)
[2021-03-08] MEDS ORDERED: LORazepam 2MG/ML-1ML VIAL ONE (00:50)
[2021-03-08] MEDS: SODIUM CHLOR 0.9% PF (SALINE LOCK) 10ML VIAL/SYR IV SCH ×3 (05:12→21:21)
[2021-03-08 05:17] VITALS: BP 139/83
[2021-03-08] MEDS: BUDESONIDE (INHALATION) 180 MCG IH IN SCH ×2 (07:17→21:32)
[2021-03-08] MEDS: ALBUTEROL SULF HFA 90MCG INH 200DOSE IN PRN ×2 (07:17→21:32)
[2021-03-08 08:00] VITALS: BP 124/78
[2021-03-08] MEDS: cefTRIAXone 1GM/50ML D5W 50 ML IV SCH (09:08)
[2021-03-08] MEDS: Glucerna Carbsteady SHAKE Vanilla 8oz PO SCH ×2 (09:09→18:45)
[2021-03-08] MEDS: APIXABAN 5 MG TAB PO SCH ×2 (09:18→21:21)
[2021-03-08] MEDS: CHOLECALCIFEROL (VITD3) 2,000 UNIT CAP/TAB PO SCH (09:18)
[2021-03-08] MEDS: POTASSIUM CHL 10 Meq TABLET PO SCH (09:18)
[2021-03-08] MEDS: FUROSEMIDE 40 MG/4 ML VIAL IV SCH (09:19)
[2021-03-08 12:00] VITALS: BP 121/81
[2021-03-08 16:59] VITALS: BP 121/81
[2021-03-08] MEDS: MIRTAZAPINE 30 MG TAB PO SCH (21:21)
[2021-03-08] MEDS: TEMAZEPAM 15 MG CAP PO PRN (21:22)
[2021-03-08] MEDS: METOPROLOL TARTRATE 25 MG TAB PO SCH (21:28)
[2021-03-08 22:35] VITALS: BP 127/76
[2021-03-09 05:10] VITALS: BP 122/70
[2021-03-09 05:47] LABS: Basophils # (auto) 0 10 ^3/uL (0-0.2); Basophils % (auto) 0.2 % (0.0-2.0); Eosinophils # (auto) 0.6 10 ^3/uL (0-0.8); Eosinophils % (auto) 5.3 % (0.0-7.0); Hematocrit 39.9 % (41.0-53.0); Hemoglobin 13.3 g/dL (13.5-17.5); Lymphocytes # (auto) 0.7 10 ^3/uL (0.4-5.4); Lymphocytes % (auto) 6.4 % (10.0-50.0); Mean Corpuscular Hemoglobin 31.3 pg (28.0-32.0); Mean Corpuscular Hgb Conc. 33.2 g/dL (32.0-36.0); Mean Corpuscular Volume 94.1 fL (80.0-100.0); Monocytes # (auto) 0.6 10 ^3/uL (0-1.3); Monocytes % (auto) 5.9 % (0.0-12.0); Neutrophils # (auto) 8.5 10 ^3/uL (1.6-8.6); Neutrophils % (auto) 82.2 % (37.0-80.0); Red Blood Cells 4.24 10^6/uL (4.5-5.90); Red Cell Distribution Width 13.7 % (11.8-14.3); White Blood Cell 10.4 10^3/uL (4.4-10.8)
[2021-03-09 06:03] LABS: Calcium 8.6 mg/dL (8.5-10.1); Potassium 4.4 mmol/L (3.5-5.1)
[2021-03-09 06:12] LABS: BUN/Creatinine Ratio 45.2; CRP High Sensitivity 7.56 mg/dL (< 0.3)
[2021-03-09] MEDS: ALBUTEROL SULF HFA 90MCG INH 200DOSE IN PRN ×2 (07:08→23:09)
[2021-03-09] MEDS: BUDESONIDE (INHALATION) 180 MCG IH IN SCH ×2 (07:08→23:09)
[2021-03-09] MEDS: Glucerna Carbsteady SHAKE Vanilla 8oz PO SCH ×2 (08:03→17:34)
[2021-03-09 09:00] VITALS: BP 128/82
[2021-03-09] MEDS: cefTRIAXone 1GM/50ML D5W 50 ML IV SCH (09:46)
[2021-03-09] MEDS: SODIUM CHLOR 0.9% PF (SALINE LOCK) 10ML VIAL/SYR IV SCH ×3 (09:46→22:21)
[2021-03-09] MEDS: APIXABAN 5 MG TAB PO SCH ×2 (09:47→22:21)
[2021-03-09] MEDS: METOPROLOL TARTRATE 25 MG TAB PO SCH ×2 (09:47→22:00)
[2021-03-09] MEDS: POTASSIUM CHL 10 Meq TABLET PO SCH (09:47)
[2021-03-09] MEDS: FUROSEMIDE 40 MG/4 ML VIAL IV SCH (09:47)
[2021-03-09] MEDS: CHOLECALCIFEROL (VITD3) 2,000 UNIT CAP/TAB PO SCH (09:48)
[2021-03-09 10:49] LABS: Folate (Folic Acid) 6.58 ng/mL (5.38-24)
[2021-03-09 13:00] VITALS: BP 121/75
[2021-03-09] MEDS: LORazepam 2MG/ML-1ML VIAL IV PRN (14:53)
[2021-03-09 17:00] VITALS: BP 123/72
[2021-03-09] MEDS: guaiFENesin-DM 100/10mg/5ml SYR PO PRN (19:53)
[2021-03-09 22:00] VITALS: BP 112/68
[2021-03-09] MEDS: MIRTAZAPINE 30 MG TAB PO SCH (22:22)
[2021-03-10] MEDS: SODIUM CHLOR 0.9% PF (SALINE LOCK) 10ML VIAL/SYR IV SCH ×3 (04:51→22:23)
[2021-03-10 05:00] VITALS: BP 137/70
[2021-03-10] MEDS: BUDESONIDE (INHALATION) 180 MCG IH IN SCH ×2 (08:32→22:09)
[2021-03-10] MEDS: ALBUTEROL SULF HFA 90MCG INH 200DOSE IN PRN ×2 (08:32→22:10)
[2021-03-10 09:00] VITALS: BP 123/73
[2021-03-10] MEDS: APIXABAN 5 MG TAB PO SCH ×2 (10:13→22:22)
[2021-03-10] MEDS: METOPROLOL TARTRATE 25 MG TAB PO SCH ×2 (10:14→22:00)
[2021-03-10] MEDS: Glucerna Carbsteady SHAKE Vanilla 8oz PO SCH ×2 (10:15→18:30)
[2021-03-10] MEDS: CHOLECALCIFEROL (VITD3) 2,000 UNIT CAP/TAB PO SCH (10:15)
[2021-03-10] MEDS: cefTRIAXone 1GM/50ML D5W 50 ML IV SCH (10:15)
[2021-03-10 13:00] VITALS: BP 112/61
[2021-03-10] MEDS ORDERED: FUROSEMIDE 40 MG/4 ML VIAL IV ONE (16:30)
[2021-03-10 17:00] VITALS: BP 115/72
[2021-03-10 21:30] VITALS: BP 107/65
[2021-03-10] MEDS: MIRTAZAPINE 30 MG TAB PO SCH (22:23)
[2021-03-10] MEDS: guaiFENesin-DM 100/10mg/5ml SYR PO PRN (22:32)
[2021-03-11 05:00] VITALS: BP 108/66
[2021-03-11] MEDS: SODIUM CHLOR 0.9% PF (SALINE LOCK) 10ML VIAL/SYR IV SCH ×3 (05:56→21:49)
[2021-03-11] MEDS: BUDESONIDE (INHALATION) 180 MCG IH IN SCH ×2 (06:32→20:53)
[2021-03-11] MEDS: ALBUTEROL SULF HFA 90MCG INH 200DOSE IN PRN ×2 (06:32→20:53)
[2021-03-11] MEDS: Glucerna Carbsteady SHAKE Vanilla 8oz PO SCH ×2 (08:30→18:47)
[2021-03-11 09:00] VITALS: BP 118/68
[2021-03-11] MEDS: APIXABAN 5 MG TAB PO SCH ×2 (09:54→21:50)
[2021-03-11] MEDS: CHOLECALCIFEROL (VITD3) 2,000 UNIT CAP/TAB PO SCH (09:54)
[2021-03-11] MEDS: METOPROLOL TARTRATE 25 MG TAB PO SCH ×2 (09:54→21:51)
[2021-03-11 13:00] VITALS: BP 96/64
[2021-03-11 17:00] VITALS: BP 130/75
[2021-03-11] MEDS: MIRTAZAPINE 30 MG TAB PO SCH (21:52)
[2021-03-11] MEDS: guaiFENesin-DM 100/10mg/5ml SYR PO PRN (21:53)
[2021-03-11 22:00] VITALS: BP 128/74
[2021-03-12 05:00] VITALS: BP 113/60
[2021-03-12] MEDS: SODIUM CHLOR 0.9% PF (SALINE LOCK) 10ML VIAL/SYR IV SCH ×3 (05:28→21:55)
[2021-03-12] MEDS: BUDESONIDE (INHALATION) 180 MCG IH IN SCH ×2 (07:57→19:19)
[2021-03-12 09:00] VITALS: BP 106/68
[2021-03-12] MEDS: Glucerna Carbsteady SHAKE Vanilla 8oz PO SCH ×2 (09:23→18:21)
[2021-03-12] MEDS: APIXABAN 5 MG TAB PO SCH ×2 (09:23→21:49)
[2021-03-12] MEDS: METOPROLOL TARTRATE 25 MG TAB PO SCH ×2 (09:25→21:49)
[2021-03-12] MEDS: CHOLECALCIFEROL (VITD3) 2,000 UNIT CAP/TAB PO SCH (09:25)
[2021-03-12] MEDS ORDERED: FUROSEMIDE 20 MG/2 ML VIAL IV ONE (09:45)
[2021-03-12] MEDS ORDERED: POTASSIUM CHL 10 Meq TABLET PO ONE (09:45)
[2021-03-12 12:58] VITALS: BP 121/66
[2021-03-12 16:57] VITALS: BP 102/73
[2021-03-12] MEDS: ALBUTEROL SULF HFA 90MCG INH 200DOSE IN PRN (19:19)
[2021-03-12] MEDS: guaiFENesin-DM 100/10mg/5ml SYR PO PRN (21:50)
[2021-03-12] MEDS: MIRTAZAPINE 30 MG TAB PO SCH (21:50)
[2021-03-12 22:24] VITALS: BP 107/66
[2021-03-13] MEDS: SODIUM CHLOR 0.9% PF (SALINE LOCK) 10ML VIAL/SYR IV SCH ×3 (05:09→21:57)
[2021-03-13 05:14] VITALS: BP 133/80
[2021-03-13] MEDS: BUDESONIDE (INHALATION) 180 MCG IH IN SCH ×2 (05:42→21:50)
[2021-03-13] MEDS: ALBUTEROL SULF HFA 90MCG INH 200DOSE IN PRN (05:43)
[2021-03-13 08:50] VITALS: BP 135/73
[2021-03-13] MEDS: Glucerna Carbsteady SHAKE Vanilla 8oz PO SCH ×2 (09:44→18:00)
[2021-03-13] MEDS: APIXABAN 5 MG TAB PO SCH ×2 (09:44→21:57)
[2021-03-13] MEDS: CHOLECALCIFEROL (VITD3) 2,000 UNIT CAP/TAB PO SCH (09:45)
[2021-03-13] MEDS: METOPROLOL TARTRATE 25 MG TAB PO SCH ×2 (09:45→21:58)
[2021-03-13 13:00] VITALS: BP 108/66
[2021-03-13 17:00] VITALS: BP_SYST 118; BP_SYST 89; BP_DIAS 55; BP_DIAS 64
[2021-03-13] MEDS: guaiFENesin-DM 100/10mg/5ml SYR PO PRN (19:51)
[2021-03-13] MEDS: MIRTAZAPINE 30 MG TAB PO SCH (21:59)
[2021-03-13 22:00] VITALS: BP 121/62
[2021-03-14 05:00] VITALS: BP 119/74
[2021-03-14] MEDS: BUDESONIDE (INHALATION) 180 MCG IH IN SCH ×2 (06:23→20:12)
[2021-03-14] MEDS: ALBUTEROL SULF HFA 90MCG INH 200DOSE IN PRN ×2 (06:23→20:12)
[2021-03-14] MEDS: SODIUM CHLOR 0.9% PF (SALINE LOCK) 10ML VIAL/SYR IV SCH ×3 (06:29→22:20)
[2021-03-14 09:00] VITALS: BP 115/75
[2021-03-14] MEDS: CHOLECALCIFEROL (VITD3) 2,000 UNIT CAP/TAB PO SCH (10:09)
[2021-03-14] MEDS: APIXABAN 5 MG TAB PO SCH ×2 (10:09→22:04)
[2021-03-14] MEDS: Glucerna Carbsteady SHAKE Vanilla 8oz PO SCH ×2 (10:09→18:04)
[2021-03-14] MEDS: METOPROLOL TARTRATE 25 MG TAB PO SCH ×2 (10:57→22:05)
[2021-03-14 13:00] VITALS: BP_SYST 101; BP_SYST 106; BP_DIAS 55; BP_DIAS 68
[2021-03-14 17:00] VITALS: BP 115/53
[2021-03-14 22:00] VITALS: BP 114/67
[2021-03-14] MEDS: MIRTAZAPINE 30 MG TAB PO SCH (22:04)
[2021-03-15] MEDS ORDERED: PROMETHAZINE HCL 6.25 MG/5 ML ORAL SYRUP PO PRN (00:30)
[2021-03-15 05:00] VITALS: BP 116/61
[2021-03-15] MEDS: SODIUM CHLOR 0.9% PF (SALINE LOCK) 10ML VIAL/SYR IV SCH ×3 (06:11→21:26)
[2021-03-15] MEDS: BUDESONIDE (INHALATION) 180 MCG IH IN SCH ×2 (06:25→21:29)
[2021-03-15 09:00] VITALS: BP 124/79
[2021-03-15] MEDS: METOPROLOL TARTRATE 25 MG TAB PO SCH ×2 (10:02→22:00)
[2021-03-15] MEDS: APIXABAN 5 MG TAB PO SCH ×2 (10:02→21:26)
[2021-03-15] MEDS: CHOLECALCIFEROL (VITD3) 2,000 UNIT CAP/TAB PO SCH (10:02)
[2021-03-15] MEDS: Glucerna Carbsteady SHAKE Vanilla 8oz PO SCH ×2 (10:03→18:07)
[2021-03-15] MEDS ORDERED: ASCORBIC ACID 500 MG TAB PO ONE (11:30)
[2021-03-15 13:00] VITALS: BP 94/60
[2021-03-15 17:00] VITALS: BP 91/54
[2021-03-15] MEDS: MIRTAZAPINE 30 MG TAB PO SCH (21:28)
[2021-03-15] MEDS: ASCORBIC ACID 500 MG TAB PO SCH (21:28)
[2021-03-15] MEDS: ALBUTEROL SULF HFA 90MCG INH 200DOSE IN PRN (21:29)
[2021-03-15 22:00] VITALS: BP 105/68
[2021-03-16 05:00] VITALS: BP 125/74
[2021-03-16] MEDS: BUDESONIDE (INHALATION) 180 MCG IH IN SCH ×2 (06:04→20:27)
[2021-03-16] MEDS: ALBUTEROL SULF HFA 90MCG INH 200DOSE IN PRN ×2 (06:04→20:27)
[2021-03-16] MEDS: SODIUM CHLOR 0.9% PF (SALINE LOCK) 10ML VIAL/SYR IV SCH ×3 (06:10→22:14)
[2021-03-16] MEDS: Glucerna Carbsteady SHAKE Vanilla 8oz PO SCH ×2 (08:00→18:00)
[2021-03-16 09:00] VITALS: BP 116/73
[2021-03-16] MEDS: CHOLECALCIFEROL (VITD3) 2,000 UNIT CAP/TAB PO SCH (09:30)
[2021-03-16] MEDS: METOPROLOL TARTRATE 25 MG TAB PO SCH ×2 (09:30→22:15)
[2021-03-16] MEDS: ASCORBIC ACID 500 MG TAB PO SCH ×2 (09:30→22:15)
[2021-03-16] MEDS: APIXABAN 5 MG TAB PO SCH ×2 (09:30→22:14)
[2021-03-16 13:00] VITALS: BP 117/70
[2021-03-16 17:00] VITALS: BP 117/65
[2021-03-16 21:00] VITALS: BP 101/60
[2021-03-16] MEDS: MIRTAZAPINE 30 MG TAB PO SCH (22:15)
[2021-03-17 05:10] VITALS: BP 122/62
[2021-03-17 05:48] LABS: Basophils # (auto) 0 10 ^3/uL (0-0.2); Basophils % (auto) 0.4 % (0.0-2.0); Eosinophils # (auto) 0.8 10 ^3/uL (0-0.8); Eosinophils % (auto) 9.8 % (0.0-7.0); Hematocrit 33.9 % (41.0-53.0); Hemoglobin 11.7 g/dL (13.5-17.5); Lymphocytes # (auto) 0.8 10 ^3/uL (0.4-5.4); Lymphocytes % (auto) 10.2 % (10.0-50.0); Mean Corpuscular Hemoglobin 31.9 pg (28.0-32.0); Mean Corpuscular Hgb Conc. 34.5 g/dL (32.0-36.0); Mean Corpuscular Volume 92.5 fL (80.0-100.0); Monocytes # (auto) 0.7 10 ^3/uL (0-1.3); Monocytes % (auto) 8.2 % (0.0-12.0); Neutrophils # (auto) 5.8 10 ^3/uL (1.6-8.6); Neutrophils % (auto) 71.4 % (37.0-80.0); Red Blood Cells 3.66 10^6/uL (4.5-5.90); Red Cell Distribution Width 13.3 % (11.8-14.3); White Blood Cell 8.2 10^3/uL (4.4-10.8)
[2021-03-17] MEDS: ALBUTEROL SULF HFA 90MCG INH 200DOSE IN PRN ×2 (06:17→23:28)
[2021-03-17] MEDS: BUDESONIDE (INHALATION) 180 MCG IH IN SCH ×2 (06:17→22:00)
[2021-03-17 06:21] LABS: BUN/Creatinine Ratio 27.3; Calcium 8.4 mg/dL (8.5-10.1); Potassium 4.1 mmol/L (3.5-5.1)
[2021-03-17] MEDS: guaiFENesin-DM 100/10mg/5ml SYR PO PRN (07:01)
[2021-03-17] MEDS: SODIUM CHLOR 0.9% PF (SALINE LOCK) 10ML VIAL/SYR IV SCH ×3 (07:01→22:35)
[2021-03-17] MEDS: Glucerna Carbsteady SHAKE Vanilla 8oz PO SCH ×2 (08:00→18:00)
[2021-03-17 09:30] VITALS: BP 110/65
[2021-03-17] MEDS: ASCORBIC ACID 500 MG TAB PO SCH ×2 (11:30→22:32)
[2021-03-17] MEDS: CHOLECALCIFEROL (VITD3) 2,000 UNIT CAP/TAB PO SCH (11:30)
[2021-03-17] MEDS: METOPROLOL TARTRATE 25 MG TAB PO SCH ×2 (11:30→22:00)
[2021-03-17] MEDS: APIXABAN 5 MG TAB PO SCH ×2 (11:30→22:33)
[2021-03-17 12:30] VITALS: BP 104/60
[2021-03-17 17:00] VITALS: BP 120/73
[2021-03-17 22:00] VITALS: BP 109/58
[2021-03-17] MEDS: MIRTAZAPINE 30 MG TAB PO SCH (22:33)
[2021-03-18] MEDS: PROMETHAZINE W/CODEINE 5 ML ORAL SYRUP PO PRN (00:27)
[2021-03-18 05:00] VITALS: BP 120/72
[2021-03-18] MEDS: SODIUM CHLOR 0.9% PF (SALINE LOCK) 10ML VIAL/SYR IV SCH ×3 (06:00→21:55)
[2021-03-18] MEDS: BUDESONIDE (INHALATION) 180 MCG IH IN SCH ×2 (06:05→18:43)
[2021-03-18 09:00] VITALS: BP 146/78
[2021-03-18] MEDS: Glucerna Carbsteady SHAKE Vanilla 8oz PO SCH ×2 (09:21→18:41)
[2021-03-18] MEDS: APIXABAN 5 MG TAB PO SCH ×2 (09:22→21:55)
[2021-03-18] MEDS: CHOLECALCIFEROL (VITD3) 2,000 UNIT CAP/TAB PO SCH (09:22)
[2021-03-18] MEDS: ASCORBIC ACID 500 MG TAB PO SCH ×2 (09:22→21:55)
[2021-03-18] MEDS: METOPROLOL TARTRATE 25 MG TAB PO SCH ×2 (10:00→21:56)
[2021-03-18 13:00] VITALS: BP 119/70
[2021-03-18 16:35] VITALS: BP 124/73
[2021-03-18] MEDS: ALBUTEROL SULF HFA 90MCG INH 200DOSE IN PRN (20:16)
[2021-03-18] MEDS: MIRTAZAPINE 30 MG TAB PO SCH (21:55)
[2021-03-18 22:00] VITALS: BP 123/71
[2021-03-19 04:53] VITALS: BP 122/79
[2021-03-19 05:00] VITALS: BP 122/79
[2021-03-19] MEDS: BUDESONIDE (INHALATION) 180 MCG IH IN SCH ×2 (06:00→20:01)
[2021-03-19] MEDS: SODIUM CHLOR 0.9% PF (SALINE LOCK) 10ML VIAL/SYR IV SCH ×3 (06:08→21:22)
[2021-03-19] MEDS: ALBUTEROL SULF HFA 90MCG INH 200DOSE IN PRN ×2 (08:21→20:01)
[2021-03-19 08:52] VITALS: BP 140/86
[2021-03-19] MEDS: METOPROLOL TARTRATE 25 MG TAB PO SCH ×3 (10:00→21:32)
[2021-03-19] MEDS: Glucerna Carbsteady SHAKE Vanilla 8oz PO SCH ×2 (10:23→18:02)
[2021-03-19] MEDS: APIXABAN 5 MG TAB PO SCH ×2 (10:24→21:22)
[2021-03-19] MEDS: ASCORBIC ACID 500 MG TAB PO SCH ×2 (10:24→21:22)
[2021-03-19] MEDS: CHOLECALCIFEROL (VITD3) 2,000 UNIT CAP/TAB PO SCH (10:25)
[2021-03-19 13:00] VITALS: BP 123/77
[2021-03-19 17:03] VITALS: BP 115/56
[2021-03-19] MEDS: MIRTAZAPINE 30 MG TAB PO SCH (21:23)
[2021-03-19 23:15] VITALS: BP 141/71
[2021-03-20 05:06] VITALS: BP 111/75
[2021-03-20] MEDS: ALBUTEROL SULF HFA 90MCG INH 200DOSE IN PRN (05:26)
[2021-03-20] MEDS: BUDESONIDE (INHALATION) 180 MCG IH IN SCH ×2 (05:27→22:21)
[2021-03-20] MEDS: SODIUM CHLOR 0.9% PF (SALINE LOCK) 10ML VIAL/SYR IV SCH ×3 (05:42→22:16)
[2021-03-20 06:19] LABS: Basophils # (auto) 0.1 10 ^3/uL (0-0.2); Basophils % (auto) 0.6 % (0.0-2.0); Eosinophils # (auto) 0.8 10 ^3/uL (0-0.8); Eosinophils % (auto) 9.3 % (0.0-7.0); Hemoglobin 11.9 g/dL (13.5-17.5); Lymphocytes # (auto) 1.2 10 ^3/uL (0.4-5.4); Lymphocytes % (auto) 14.8 % (10.0-50.0); Mean Corpuscular Hemoglobin 31.7 pg (28.0-32.0); Mean Corpuscular Volume 93.2 fL (80.0-100.0); Monocytes # (auto) 0.8 10 ^3/uL (0-1.3); Neutrophils # (auto) 5.5 10 ^3/uL (1.6-8.6); Neutrophils % (auto) 66.3 % (37.0-80.0); Nucleated Red Blood Cells % 0.1 %; Red Blood Cells 3.75 10^6/uL (4.5-5.90); Red Cell Distribution Width 13.4 % (11.8-14.3); White Blood Cell 8.3 10^3/uL (4.4-10.8)
[2021-03-20 07:15] LABS: Potassium 4.4 mmol/L (3.5-5.1)
[2021-03-20 07:24] LABS: Albumin 1.9 g/dL (3.4-5.0); BUN/Creatinine Ratio 26.7; Calcium 8.9 mg/dL (8.5-10.1)
[2021-03-20 07:26] LABS: Bilirubin, Total 0.3 mg/dL (0.2-1.0); Total Protein 7.2 g/dL (6.4-8.2)
[2021-03-20] MEDS: Glucerna Carbsteady SHAKE Vanilla 8oz PO SCH ×2 (08:00→18:21)
[2021-03-20 09:00] VITALS: BP 123/73
[2021-03-20] MEDS: APIXABAN 5 MG TAB PO SCH ×2 (09:15→22:17)
[2021-03-20] MEDS: CHOLECALCIFEROL (VITD3) 2,000 UNIT CAP/TAB PO SCH (09:30)
[2021-03-20] MEDS: ASCORBIC ACID 500 MG TAB PO SCH ×2 (09:30→22:18)
[2021-03-20] MEDS: METOPROLOL TARTRATE 25 MG TAB PO SCH ×2 (10:00→22:17)
[2021-03-20 12:57] VITALS: BP 115/64
[2021-03-20 17:00] VITALS: BP 104/67
[2021-03-20 22:00] VITALS: BP 139/87
[2021-03-20] MEDS: MIRTAZAPINE 30 MG TAB PO SCH (22:00)
[2021-03-21 05:00] VITALS: BP 116/68
[2021-03-21 05:08] LABS: Basophils # (auto) 0.1 10 ^3/uL (0-0.2); Basophils % (auto) 0.7 % (0.0-2.0); Eosinophils # (auto) 0.7 10 ^3/uL (0-0.8); Hematocrit 33.9 % (41.0-53.0); Hemoglobin 11.4 g/dL (13.5-17.5); Lymphocytes # (auto) 0.8 10 ^3/uL (0.4-5.4); Lymphocytes % (auto) 8.8 % (10.0-50.0); Mean Corpuscular Hemoglobin 31.2 pg (28.0-32.0); Mean Corpuscular Hgb Conc. 33.6 g/dL (32.0-36.0); Mean Corpuscular Volume 92.9 fL (80.0-100.0); Monocytes # (auto) 0.7 10 ^3/uL (0-1.3); Monocytes % (auto) 7.1 % (0.0-12.0); Neutrophils # (auto) 7.4 10 ^3/uL (1.6-8.6); Neutrophils % (auto) 76.4 % (37.0-80.0); Red Blood Cells 3.65 10^6/uL (4.5-5.90); Red Cell Distribution Width 13.6 % (11.8-14.3); White Blood Cell 9.7 10^3/uL (4.4-10.8)
[2021-03-21] MEDS: SODIUM CHLOR 0.9% PF (SALINE LOCK) 10ML VIAL/SYR IV SCH ×3 (05:11→21:58)
[2021-03-21 05:30] LABS: Potassium 3.9 mmol/L (3.5-5.1)
[2021-03-21 05:39] LABS: Albumin 1.9 g/dL (3.4-5.0); BUN/Creatinine Ratio 27.1; Bilirubin, Total 0.3 mg/dL (0.2-1.0); Calcium 8.2 mg/dL (8.5-10.1); Total Protein 7.1 g/dL (6.4-8.2)
[2021-03-21] MEDS: Glucerna Carbsteady SHAKE Vanilla 8oz PO SCH ×2 (08:00→17:57)
[2021-03-21] MEDS: BUDESONIDE (INHALATION) 180 MCG IH IN SCH ×2 (08:44→20:00)
[2021-03-21] MEDS: ALBUTEROL SULF HFA 90MCG INH 200DOSE IN PRN ×2 (08:45→20:00)
[2021-03-21 09:04] VITALS: BP 100/56
[2021-03-21] MEDS: METOPROLOL TARTRATE 25 MG TAB PO SCH (10:00)
[2021-03-21] MEDS: CHOLECALCIFEROL (VITD3) 2,000 UNIT CAP/TAB PO SCH (10:00)
[2021-03-21] MEDS: ASCORBIC ACID 500 MG TAB PO SCH ×2 (10:00→21:58)
[2021-03-21] MEDS: APIXABAN 5 MG TAB PO SCH (11:56)
[2021-03-21 13:22] VITALS: BP 107/70
[2021-03-21 16:59] VITALS: BP 128/91
[2021-03-21] MEDS: ENOXAPARIN SOD 80 MG/0.8ML SYRINGE SC SCH (21:58)
[2021-03-21 22:00] VITALS: BP 118/68
[2021-03-21] MEDS: MIRTAZAPINE 30 MG TAB PO SCH (22:00)
[2021-03-22] MEDS: LORazepam 2MG/ML-1ML VIAL IV PRN ×2 (01:01→22:47)
[2021-03-22 05:00] VITALS: BP 149/92
[2021-03-22] MEDS: Glucerna Carbsteady SHAKE Vanilla 8oz PO SCH ×2 (07:32→18:00)
[2021-03-22] MEDS: SODIUM CHLOR 0.9% PF (SALINE LOCK) 10ML VIAL/SYR IV SCH ×3 (08:22→22:00)
[2021-03-22] MEDS: BUDESONIDE (INHALATION) 180 MCG IH IN SCH ×2 (08:48→21:51)
[2021-03-22] MEDS: ALBUTEROL SULF HFA 90MCG INH 200DOSE IN PRN (08:48)
[2021-03-22 08:57] VITALS: BP 126/81
[2021-03-22] MEDS: ASCORBIC ACID 500 MG TAB PO SCH ×2 (10:30→22:00)
[2021-03-22] MEDS: ENOXAPARIN SOD 80 MG/0.8ML SYRINGE SC SCH ×2 (10:30→22:00)
[2021-03-22 12:23] VITALS: BP 118/65
[2021-03-22 17:39] VITALS: BP 129/74
[2021-03-22 21:39] LABS: Basophils # (auto) 0 10 ^3/uL (0-0.2); Basophils % (auto) 0.4 % (0.0-2.0); Eosinophils # (auto) 0.6 10 ^3/uL (0-0.8); Eosinophils % (auto) 4.8 % (0.0-7.0); Hematocrit 32.2 % (41.0-53.0); Hemoglobin 10.9 g/dL (13.5-17.5); Lymphocytes # (auto) 0.9 10 ^3/uL (0.4-5.4); Lymphocytes % (auto) 6.9 % (10.0-50.0); Mean Corpuscular Hemoglobin 31.5 pg (28.0-32.0); Mean Corpuscular Hgb Conc. 33.8 g/dL (32.0-36.0); Mean Corpuscular Volume 93.1 fL (80.0-100.0); Monocytes # (auto) 1.1 10 ^3/uL (0-1.3); Monocytes % (auto) 8.6 % (0.0-12.0); Neutrophils # (auto) 10.4 10 ^3/uL (1.6-8.6); Neutrophils % (auto) 79.3 % (37.0-80.0); Red Blood Cells 3.46 10^6/uL (4.5-5.90); Red Cell Distribution Width 13.5 % (11.8-14.3); White Blood Cell 13.2 10^3/uL (4.4-10.8)
[2021-03-22 21:46] LABS: BUN/Creatinine Ratio 31.7; Calcium 8.2 mg/dL (8.5-10.1); Potassium 4.2 mmol/L (3.5-5.1)
[2021-03-22 22:00] VITALS: BP 134/73
[2021-03-22] MEDS: MIRTAZAPINE 30 MG TAB PO SCH (22:00)
[2021-03-23 05:00] VITALS: BP 136/68
[2021-03-23] MEDS: ALBUTEROL SULF HFA 90MCG INH 200DOSE IN PRN ×2 (05:47→19:40)
[2021-03-23] MEDS: BUDESONIDE (INHALATION) 180 MCG IH IN SCH ×2 (05:47→19:40)
[2021-03-23] MEDS: SODIUM CHLOR 0.9% PF (SALINE LOCK) 10ML VIAL/SYR IV SCH ×3 (06:12→22:17)
[2021-03-23] MEDS: Glucerna Carbsteady SHAKE Vanilla 8oz PO SCH (07:38)
[2021-03-23 08:30] VITALS: BP 135/93
[2021-03-23] MEDS: ASCORBIC ACID 500 MG TAB PO SCH ×2 (10:00→22:18)
[2021-03-23] MEDS: ENOXAPARIN SOD 80 MG/0.8ML SYRINGE SC SCH (10:00)
[2021-03-23 12:30] VITALS: BP 127/80
[2021-03-23 16:40] VITALS: BP 126/78
[2021-03-23 22:00] VITALS: BP 124/64
[2021-03-23] MEDS: MIRTAZAPINE 30 MG TAB PO SCH (22:18)
[2021-03-23] MEDS: APIXABAN 5 MG TAB PO SCH (22:18)
[2021-03-24 05:00] VITALS: BP 139/67
[2021-03-24] MEDS: ALBUTEROL SULF HFA 90MCG INH 200DOSE IN PRN ×2 (05:52→20:14)
[2021-03-24] MEDS: BUDESONIDE (INHALATION) 180 MCG IH IN SCH ×2 (05:52→20:14)
[2021-03-24] MEDS: SODIUM CHLOR 0.9% PF (SALINE LOCK) 10ML VIAL/SYR IV SCH ×3 (06:24→20:55)
[2021-03-24 09:00] VITALS: BP 136/81
[2021-03-24] MEDS: Glucerna Carbsteady SHAKE Vanilla 8oz PO SCH ×3 (09:19→17:58)
[2021-03-24] MEDS: APIXABAN 5 MG TAB PO SCH ×2 (09:19→20:55)
[2021-03-24] MEDS: ASCORBIC ACID 500 MG TAB PO SCH ×2 (11:35→20:56)
[2021-03-24 13:00] VITALS: BP 131/77
[2021-03-24] MEDS: METOPROLOL SUCCINATE XL 50 MG TAB PO SCH (13:12)
[2021-03-24 17:00] VITALS: BP 124/79
[2021-03-24] MEDS: MIRTAZAPINE 30 MG TAB PO SCH (20:56)
[2021-03-24] MEDS: PROMETHAZINE W/CODEINE 5 ML ORAL SYRUP PO PRN (22:25)
[2021-03-24] MEDS: ZOLPIDEM TARTRATE 5 MG TAB PO PRN (23:03)
[2021-03-25 00:59] VITALS: BP 125/71
[2021-03-25] MEDS: SODIUM CHLOR 0.9% PF (SALINE LOCK) 10ML VIAL/SYR IV SCH ×3 (06:00→21:10)
[2021-03-25] MEDS: BUDESONIDE (INHALATION) 180 MCG IH IN SCH ×2 (07:10→21:39)
[2021-03-25] MEDS: Glucerna Carbsteady SHAKE Vanilla 8oz PO SCH ×2 (08:00→17:06)
[2021-03-25] MEDS: ALBUTEROL SULF HFA 90MCG INH 200DOSE IN PRN ×2 (08:25→21:39)
[2021-03-25 09:00] VITALS: BP 132/81
[2021-03-25] MEDS: APIXABAN 5 MG TAB PO SCH ×2 (10:00→21:10)
[2021-03-25] MEDS: METOPROLOL SUCCINATE XL 50 MG TAB PO SCH (10:00)
[2021-03-25] MEDS: ASCORBIC ACID 500 MG TAB PO SCH ×2 (10:01→21:09)
[2021-03-25 13:00] VITALS: BP 130/79
[2021-03-25 17:00] VITALS: BP 140/89
[2021-03-25] MEDS: MIRTAZAPINE 30 MG TAB PO SCH (21:10)
[2021-03-25 22:00] VITALS: BP 117/91
[2021-03-25] MEDS: ZOLPIDEM TARTRATE 5 MG TAB PO PRN (22:44)
[2021-03-26 05:04] VITALS: BP 125/76
[2021-03-26] MEDS: SODIUM CHLOR 0.9% PF (SALINE LOCK) 10ML VIAL/SYR IV SCH ×3 (05:44→22:21)
[2021-03-26] MEDS: BUDESONIDE (INHALATION) 180 MCG IH IN SCH ×2 (09:00→18:18)
[2021-03-26] MEDS: ALBUTEROL SULF HFA 90MCG INH 200DOSE IN PRN ×2 (09:00→20:52)
[2021-03-26] MEDS: METOPROLOL SUCCINATE XL 50 MG TAB PO SCH (09:49)
[2021-03-26] MEDS: Glucerna Carbsteady SHAKE Vanilla 8oz PO SCH ×2 (09:49→18:19)
[2021-03-26] MEDS: APIXABAN 5 MG TAB PO SCH ×2 (09:49→22:30)
[2021-03-26] MEDS: ASCORBIC ACID 500 MG TAB PO SCH ×2 (09:50→22:31)
[2021-03-26 13:00] VITALS: BP 147/84
[2021-03-26 17:00] VITALS: BP 142/81
[2021-03-26 22:00] VITALS: BP 118/72
[2021-03-26] MEDS: MIRTAZAPINE 30 MG TAB PO SCH (22:30)
[2021-03-27 05:10] VITALS: BP 152/91
[2021-03-27] MEDS: BUDESONIDE (INHALATION) 180 MCG IH IN SCH ×2 (05:49→19:31)
[2021-03-27] MEDS: ALBUTEROL SULF HFA 90MCG INH 200DOSE IN PRN ×2 (05:49→19:31)
[2021-03-27] MEDS: SODIUM CHLOR 0.9% PF (SALINE LOCK) 10ML VIAL/SYR IV SCH ×3 (06:41→21:23)
[2021-03-27] MEDS: Glucerna Carbsteady SHAKE Vanilla 8oz PO SCH ×2 (08:00→18:00)
[2021-03-27 09:00] VITALS: BP 157/99
[2021-03-27] MEDS: METOPROLOL SUCCINATE XL 50 MG TAB PO SCH (10:00)
[2021-03-27] MEDS: ASCORBIC ACID 500 MG TAB PO SCH ×2 (10:24→21:27)
[2021-03-27] MEDS: APIXABAN 5 MG TAB PO SCH ×2 (10:25→21:27)
[2021-03-27 13:00] VITALS: BP 110/66
[2021-03-27 17:00] VITALS: BP 19/64
[2021-03-27] MEDS: MIRTAZAPINE 30 MG TAB PO SCH (21:27)
[2021-03-27 22:00] VITALS: BP 105/63
== END 2021-03-28 00:26 | DRG 871 ==
LOC: EDBD 08:48 → ER 08:48 → TELE 11:49 → TELE-EAST 17:54 → TELE-E-ADS 02-20 04:47 → TELE-EAST 03-04 11:07
PROVIDERS: ADMIT Internal Medicine; ATTEND Internal Medicine
PROC: 5A0955A Assistance with Respiratory Ventilation, Greater than 96 Consecutive Hours, High Flow/Velocity Cannula (ICD-10-PCS; 2021-02-17)
PROC: XW033E5 Introduction of Remdesivir Anti-infective into Peripheral Vein, Percutaneous Approach, New Technology Group 5 (ICD-10-PCS; 2021-02-17)
PROC: 5A09557 Assistance with Respiratory Ventilation, Greater than 96 Consecutive Hours, Continuous Positive Airway Pressure (ICD-10-PCS; principal; 2021-02-21)
DX: A41.89 Other specified sepsis (principal); U07.1 COVID-19; E43 Unspecified severe protein-calorie malnutrition; J12.82 Pneumonia due to coronavirus disease 2019; J96.01 Acute respiratory failure with hypoxia; G93.41 Metabolic encephalopathy; E87.3 Alkalosis; G93.1 Anoxic brain damage, not elsewhere classified; I82.432 Acute embolism and thrombosis of left popliteal vein; R65.20 Severe sepsis without septic shock; D89.839 Cytokine release syndrome, grade unspecified; E66.9 Obesity, unspecified; Z68.33 Body mass index [BMI] 33.0-33.9, adult; F32.A Depression, unspecified; J45.909 Unspecified asthma, uncomplicated; R47.1 Dysarthria and anarthria; Z66 Do not resuscitate; T38.0X5A Adverse effect of glucocorticoids and synthetic analogues, initial encounter; Y92.89 Other specified places as the place of occurrence of the external cause; Z79.01 Long term (current) use of anticoagulants; Z80.6 Family history of leukemia; Z82.3 Family history of stroke; Z91.040 Latex allergy status; Z91.018 Allergy to other foods; Z51.5 Encounter for palliative care; Z23 Encounter for immunization
CPT/HCPCS: 36415; 36600; 70450; 71045; 71275; 80048; 80053; 80061; 81001; 82306; 82607; 82728; 82746; 82805; 83605; 83615; 83735; 83880; 84100; 84443; 84484; 85007; 85025; 85027; 85379; 86141; 87040; 87426; 92610; 93005; 93306; 93970; 94640; 94660; 95819; 96365; 96375; 97110; 97116; 97163; 97530; G0378; J0696; J1100; J3490

== ENCOUNTER 2021-06-16 15:55 | Inpatient (IN) | payer MEDICARE, OTHER ==
[~2021-06-16] VITALS: Ht 175.3 cm; Wt 77.1 kg
[2021-06-16 16:51] LABS: Basophils # (auto) 0 10 ^3/uL (0-0.2); Basophils % (auto) 0.6 % (0.0-2.0); Eosinophils # (auto) 0.1 10 ^3/uL (0-0.8); Eosinophils % (auto) 1.8 % (0.0-7.0); Hematocrit 43.6 % (41.0-53.0); Hemoglobin 14.9 g/dL (13.5-17.5); Lymphocytes # (auto) 2.2 10 ^3/uL (0.4-5.4); Lymphocytes % (auto) 30.3 % (10.0-50.0); Mean Corpuscular Hemoglobin 31.2 pg (28.0-32.0); Mean Corpuscular Hgb Conc. 34.1 g/dL (32.0-36.0); Mean Corpuscular Volume 91.5 fL (80.0-100.0); Monocytes # (auto) 0.8 10 ^3/uL (0-1.3); Monocytes % (auto) 11.1 % (0.0-12.0); Neutrophils # (auto) 4.1 10 ^3/uL (1.6-8.6); Neutrophils % (auto) 56.2 % (37.0-80.0); Nucleated Red Blood Cells % 0.1 %; Red Blood Cells 4.76 10^6/uL (4.5-5.90); Red Cell Distribution Width 14.6 % (11.8-14.3); White Blood Cell 7.3 10^3/uL (4.4-10.8)
[2021-06-16 17:13] LABS: Albumin 3.2 g/dL (3.4-5.0); Anion Gap 5 (5-15); Blood Urea Nitrogen 12 mg/dL (7-18); Calcium 9.2 mg/dL (8.5-10.1); Carbon Dioxide 27 mmol/L (21-32); Chloride 107 mmol/L (98-107); Glucose 77 mg/dL (74-106); Potassium 3.7 mmol/L (3.5-5.1); Sodium 139 mmol/L (136-145)
[2021-06-16 17:18] LABS: Alanine Aminotransferase 14 U/L (16-61); Alkaline Phosphatase 74 U/L (45-117); Aspartate Aminotransferase 19 U/L (15-37); BUN/Creatinine Ratio 16.2; Bilirubin, Total 0.2 mg/dL (0.2-1.0); GFR African American 132 mL/min; GFR Non-African American 109 mL/min; Total Protein 7.9 g/dL (6.4-8.2)
[2021-06-17] VITALS (8 sets, daily range): BP systolic 123–155; BP diastolic 76–95
[2021-06-17] MEDS ORDERED: HEPARIN DRIP/D5W 100UNITS/ML 250 ML IV SCH (02:00)
[2021-06-17] MEDS ORDERED: ACETAMINOPHEN 325 MG TAB PO PRN (02:30)
[2021-06-17] MEDS ORDERED: ENOXAPARIN SOD 100 MG/1 ML SYRINGE SC SCH (02:30)
[2021-06-17] MEDS ORDERED: ALBUTEROL SULF 2.5 MG/0.5ML(0.5%) NEB SOLN NEB PRN (02:30)
[2021-06-17] MEDS ORDERED: HYDROcodone-ACET 5/325MG TAB PO PRN (02:30)
[2021-06-17] MEDS ORDERED: ONDANSETRON HCL 4 MG/2 ML VIAL IV PRN (02:30)
[2021-06-17] MEDS ORDERED: AZITHROMYCIN 500MG/ 250ML 250 ML IV ONE (02:30)
[2021-06-17 02:33] LABS: Basophils # (auto) 0.1 10 ^3/uL (0-0.2); Basophils % (auto) 0.7 % (0.0-2.0); Eosinophils # (auto) 0.2 10 ^3/uL (0-0.8); Eosinophils % (auto) 2.6 % (0.0-7.0); Hematocrit 42.8 % (41.0-53.0); Hemoglobin 14.6 g/dL (13.5-17.5); Lymphocytes # (auto) 2.2 10 ^3/uL (0.4-5.4); Lymphocytes % (auto) 29.8 % (10.0-50.0); Mean Corpuscular Hgb Conc. 34.1 g/dL (32.0-36.0); Mean Corpuscular Volume 90.9 fL (80.0-100.0); Monocytes # (auto) 0.7 10 ^3/uL (0-1.3); Monocytes % (auto) 9.1 % (0.0-12.0); Neutrophils # (auto) 4.2 10 ^3/uL (1.6-8.6); Neutrophils % (auto) 57.8 % (37.0-80.0); Nucleated Red Blood Cells % 0.2 %; Red Blood Cells 4.71 10^6/uL (4.5-5.90); Red Cell Distribution Width 14.2 % (11.8-14.3); White Blood Cell 7.3 10^3/uL (4.4-10.8)
[2021-06-17 02:51] LABS: Albumin 2.9 g/dL (3.4-5.0); BUN/Creatinine Ratio 19.4; Calcium 8.8 mg/dL (8.5-10.1); INR 1.04 (0.9-1.15); Partial Thromboplastin Time 28.2 sec (23.6-33.0); Potassium 3.6 mmol/L (3.5-5.1)
[2021-06-17 03:00] LABS: Bilirubin, Total 0.2 mg/dL (0.2-1.0)
[2021-06-17] MEDS ORDERED: ENOXAPARIN SOD 80 MG/0.8ML SYRINGE SC SCH (10:00)
[2021-06-17] MEDS ORDERED: PANTOPRAZOLE 40 MG TAB PO SCH (10:00)
[2021-06-17] MEDS ORDERED: AZITHROMYCIN 500MG/ 250ML 250 ML IV SCH (10:00)
[2021-06-17] MEDS ORDERED: METOPROLOL SUCCINATE XL 50 MG TAB PO SCH (10:00)
[2021-06-17] MEDS ORDERED: CHOL20009 PO (16:29)
[2021-06-17] MEDS ORDERED: GARL200T PO (16:29)
[2021-06-17] MEDS ORDERED: ZOLP5TAB5 PO (16:29)
[2021-06-17] MEDS ORDERED: METO25TA93 PO (16:29)
[2021-06-17] MEDS ORDERED: ALBU108A5 IN (16:29)
[2021-06-17] MEDS ORDERED: APIX5TAB PO (16:29)
[2021-06-17] MEDS ORDERED: ASCO500C49 PO (16:29)
== END 2021-06-17 19:33 | disposition home health service (06) | DRG 299 ==
LOC: EDBD 15:55 → ER 15:55 → OVERFLOW 06-17 02:19 → CENTRAL 06-17 04:18
PROVIDERS: ADMIT Nurse Practitioner; ATTEND Internal Medicine
DX: I80.8 Phlebitis and thrombophlebitis of other sites (principal); J18.9 Pneumonia, unspecified organism; D68.59 Other primary thrombophilia; Z20.822 Contact with and (suspected) exposure to COVID-19; I10 Essential (primary) hypertension; I48.0 Paroxysmal atrial fibrillation; J84.10 Pulmonary fibrosis, unspecified; Z79.01 Long term (current) use of anticoagulants; Z91.19 Patient's noncompliance with other medical treatment and regimen; Z88.7 Allergy status to serum and vaccine; Z86.16 Personal history of COVID-19; Z91.040 Latex allergy status; Z91.018 Allergy to other foods
CPT/HCPCS: 36415; 71045; 80053; 84484; 85025; 85379; 85610; 85730; 93005; 93971; 96365; G0378